=== PATIENT | male | born 1995 | race Caucasian/White ===

== ENCOUNTER 2016-08-21 07:56 | Emergency (ER) | payer SELFPAY ==
[2016-08-21 08:05] VITALS: BP 117/72
[2016-08-21] MEDS ORDERED: ULTRAM PO ONE (08:15)
[2016-08-21] MEDS ORDERED: XYLOCAINE 1% MPF 5 mL INFILTRATI ONE (08:26)
--- NOTE | 2016-08-21 08:31 | Emergency Department Report ---
ED Upper Extremity Inj HPI - General Chief Complaint: Extremity Injury, Upper Stated Complaint: FINGER INJURY Time Seen by Provider: 08/21/16 08:11 Source: patient Mode of arrival: Ambulatory Limitations: No Limitations - History of Present Illness Complaint: Injury to:: right, finger Onset/Timin -: days(s) Other Extremity Injury: Fingers: Right (right index finger ) Handedness: right Place: home Severity scale (0 -10): 5 Improves With: none Worsens With: movement of extremity Associated Symptoms: denies: weakness, numbness, neck pain, suspects foreign body, nausea/vomiting, heard/felt popping sensat - Related Data Previous Rx's Medication Instructions Recorded Last Taken Type traMADol [Ultram] 50 mg PO Q6HR PRN #12 tablet 08/21/16 Unknown Rx Allergies Allergy/AdvReac Type Severity Reaction Status Date / Time No Known Allergies Allergy Unverified 08/21/16 08:04 ED Review of Systems ROS: Stated complaint: FINGER INJURY Other details as noted in HPI Constitutional: denies: chills, fever Eyes: denies: eye pain, eye discharge, vision change ENT: denies: ear pain, throat pain Respiratory: denies: cough, shortness of breath, wheezing Cardiovascular: denies: chest pain, palpitations Endocrine: no symptoms reported Gastrointestinal: denies: abdominal pain, nausea, diarrhea Genitourinary: denies: urgency, dysuria Musculoskeletal: myalgia Neurological: denies: headache, weakness, paresthesias Psychiatric: denies: anxiety, depression Hematological/Lymphatic: denies: easy bleeding, easy bruising ED Past Medical Hx - Past Medical History Previous Medical History?: No - Surgical History Past Surgical History?: No - Social History Smoking Status: Never Smoker Substance Use Type: None - Medications Home Medications: Home Medications Medication Instructions Recorded Confirmed Last Taken Type traMADol [Ultram] 50 mg PO Q6HR PRN #12 tablet 08/21/16 Unknown Rx ED Physical Exam - General Limitations: No Limitations General appearance: alert, in no apparent distress - Head Head exam: Present: atraumatic, normocephalic - Eye Eye exam: Present: normal appearance - ENT ENT exam: Present: mucous membranes moist - Neck Neck exam: Present: normal inspection - Respiratory Respiratory exam: Present: normal lung sounds bilaterally. Absent: respiratory distress - Cardiovascular Cardiovascular Exam: Present: regular rate, normal rhythm. Absent: systolic murmur, diastolic murmur, rubs, gallop - GI/Abdominal GI/Abdominal exam: Present: soft, normal bowel sounds - Rectal Rectal exam: Present: deferred - Expanded Upper Extremity Exam Right Shoulder Exam: Present: normal inspection Upper Arm exam: Present: normal inspection Elbow exam: Present: normal inspection Forearm Wrist exam: Present: normal inspection Hand Wrist exam: Present: subungual hematoma (righth index finger ) Neuro motor exam: Present: wrist extension intact, thumb opposition intact, thumb IP flexion intact, thumb adduction intact, fingers 2-5 abduction intact Neurosensory exam: Present: 2-point discrimination, radial nerve intact, ulnar nerve intact, median nerve intact Vascular: Present: normal capillary refill, radial pulse, brachial pulse, ulnar pulse. Absent: vascular compromise, Pallo, pulse deficit radial art, pulse deficit ulnar art, pulse deficit brachial art - Back Exam Back exam: Present: normal inspection - Neurological Exam Neurological exam: Present: alert, oriented X3 - Psychiatric Psychiatric exam: Present: normal affect, normal mood - Skin Skin exam: Present: warm, dry, intact, normal color. Absent: rash ED Course Vital Signs 08/21/16 08/21/16 08:00 08:22 Temperature 98.1 F Pulse Rate 63 Respiratory 16 16 Rate Blood Pressure 117/72 O2 Sat by Pulse 100 Oximetry - I & D Right Volar Finger Type of Procedure: Simple Site: right index finger subungual hematoma Blade Size: caurtery pen I & D Procedure: betadine prep Progress: right index finger subungual hematoma finger cleaned with betadine solution, anesthesia with lidocaine 1%, hematoma reduced with cuatery pen , output blood throbbing relieved, bleeding controled 4x4 dressing applied pt given wound care instructions verbalize understanding of same pt tolerated procedure with minimal distress ED Medical Decision Making - Medical Decision Making pt is a 21 y/o aam slammed right index finger in car door yesterday, resulting in subungual hematoma, relieved via cautery pen, see procedure noted pt tolerated with minimal distress dressing intact bleeding controlled, pt given wound care instructions pt verbalized understanding and agreement with discharge plan. Tetanus is up to date Critical care attestation.: If time is entered above; I have spent that time in minutes in the direct care of this critically ill patient, excluding procedure time. ED Disposition Clinical Impression: Subungual hematoma Subungual hematoma of finger of right hand Qualifiers: Encounter type: initial encounter Qualified Code(s): S60.10XA - Contusion of unspecified finger with damage to nail, initial encounter Disposition: DC- TO HOME OR SELFCARE Is pt being admited?: No Does the pt Need Aspirin: No Condition: Good Instructions: Puncture Wound (ED) Prescriptions: traMADol [Ultram] 50 mg PO Q6HR PRN #12 tablet PRN Reason: Pain Referrals: PRIMARY CARE,MD [Primary Care Provider] - 3-5 Days Forms: Work/School Release Form(ED) Time of Disposition: 08:46
--- NOTE | 2016-08-21 09:15 | XRay Report ---
Left second digit 2 views: History: Finger pain blunt trauma. Findings: No bony or articular abnormality. No fracture dislocation or periosteal reaction. Impression: Essentially negative right index finger.
== END 2016-08-21 08:51 | disposition home or self-care (01) ==
LOC: ED 07:56
DX: S60.10XA Contusion of unspecified finger with damage to nail, initial encounter (principal); X58.XXXA Exposure to other specified factors, initial encounter; Y93.89 Activity, other specified; Y99.8 Other external cause status; Y92.099 Unspecified place in other non-institutional residence as the place of occurrence of the external cause
CPT/HCPCS: 99283